=== PATIENT | female | born 1950 | race American Indian/Alaskan Native ===

== ENCOUNTER 2020-06-22 08:30 | Day surgery (SDC) | payer MEDICARE, OTHER ==
[~2020-06-22 08:30] MED LIST: ACETAMINOPHEN 500 MG TAB PO SCH; LACTATED RINGERS 1,000 ML IV SCH; MIDAZOLAM 2 MG/2 ML INJ IV NR; ceFAZolin/Water 2 GM/20 ML 2 GM/20 ML SYRINGE IV NR; fentaNYL 100 MCG/2 ML INJ IV PRN
[2020-06-22] MEDS ORDERED: BUPIVACAINE-EPINEPHRINE/PF 0.5%-1:200,000 (30 ML) VIAL INFILTRATI ONE (08:49)
[2020-06-22] MEDS ORDERED: dexAMETHasone 4 MG/ML VIAL ONE (08:49)
[2020-06-22] MEDS ORDERED: LIDOCAINE (1%) 10 MG/1 ML VIAL 20 ML MDV ONE ×2 (08:50→08:54)
[2020-06-22] MEDS ORDERED: fentaNYL 100 MCG/2 ML INJ IV PRN (10:01)
[2020-06-22] MEDS ORDERED: ONDANSETRON 4 MG/2 ML INJ IV PRN (10:01)
--- NOTE | 2020-06-22 10:01 | Anesthesia Consultation ---
Anesthesia Consult and Med Hx Date of service: 06/22/20 - Airway Anesthetic Teeth Evaluation: Good ROM Head & Neck: Adequate Mental/Hyoid Distance: Adequate Mallampati Class: Class III Intubation Access Assessment: Possibly Difficult - Pulmonary Exam CTA: Yes - Cardiac Exam Cardiac Exam: RRR - Pre-Operative Health Status ASA Pre-Surgery Classification: ASA3 Proposed Anesthetic Plan: General Nerve Block: PECS - Pulmonary Hx Smoking: No (remote hx sociaal smoking) Hx Respiratory Symptoms: No Hx Sleep Apnea: Yes (No CPAP) - Cardiovascular System Hx Hypertension: Yes (took clonidine this morning. BP elevated in preop possibly 2/2 anxiety) Hx Heart Attack/AMI: No Hx Percutaneous Transluminal Coronary Angioplasty (PTCA): No - Central Nervous System CVA: No - Endocrine Hx Renal Disease: No Hx Liver Disease: No Hx Insulin Dependent Diabetes: No Hx Non-Insulin Dependent Diabetes: No (A1c 6.5; no meds) Hx Thyroid Disease: No - Other Systems Hx Cancer: Yes (breast ca) Hx Obesity: Yes (BMI 45) - Additional Comments Anesthesia Medical History Comments: No hx anesthetic complications.
--- NOTE | 2020-06-22 10:01 | Anesthesia Day of Surgery ---
Anesthesia Day of Surgery - Day of Surgery Patient Examined: Yes Patient H&P Reviewed: Yes Patient is NPO: Yes
--- NOTE | 2020-06-22 10:58 | Progress Note ---
Regional Anesthesia Block - Regional Anesthesia Block Start Time: 10:47 Stop Time: 10:53 Performed By:: MARC AMBRIZ Procedure: [Right] Ultrasound Guided PEC Block Pt IDd, consent obtained, time out performed. Pt on monitor + O2 via NC, VS stable, sedation given per pre-op RN. Sterile prep. Landmarks identified with ultrasound. [2]cc skin wheel with 1% lidocaine. Needle advance in plane with ultrasound. [30]cc [0.5]% bupivacaine [w/ epi] + [4]mg decadron injected incrementally with negative aspiration. Pt tolerated procedure well, no immediate complications noted.
--- NOTE | 2020-06-22 10:59 | Mammography Report ---
MAMMOGRAPHIC GUIDED RIGHT BREAST NEEDLE LOCALIZATION, 06/22/2020 CLINICAL INFORMATION / INDICATION: RT BREAST CANCER. COMPARISON: 04/15/2020 PROCEDURE: Risks, benefits and indications to the procedure were discussed with the patient. The patient agreed to proceed with both verbal and written consent. A timeout procedure was performed with 2 patient live ntifiers. The breast was prepped with betadine in the usual sterile fashion. Approximately 5 cc of Lidocaine 1% was used for local anesthesia. Under direct digital mammographic guidance, a localization wire was p laced in satisfactory position with distal tip traversing the targeted lesion. Post-biopsy mammogram confirms satisfactory positioning of the localization wire. The wire was secured to the skin with a s terile dressing. The patient tolerated procedure without difficulty. No complications were encountered. IMPRESSION: 1. Satisfactory mammographic guided wire localization of the right breast. Signer Name: Dashawn Avitia Jr, MD Signed: 06/22/2020 10:54 AM Workstation Name: [id number]
[2020-06-22] MEDS ORDERED: SODIUM CHLORIDE P/F VIAL 10 ML 10 ML ONE (12:30)
[2020-06-22] MEDS ORDERED: METHYLENE BLUE 50 MG/10 ML AMP ONE (12:30)
[2020-06-22] MEDS ORDERED: propofoL 200 MG/20 ML VIAL IV ONE (12:36)
[2020-06-22] MEDS ORDERED: dexAMETHasone 20 MG/5 ML VIAL ONE ×2 (12:38→16:58)
[2020-06-22] MEDS ORDERED: ONDANSETRON 4 MG/2 ML INJ ONE ×2 (12:38→16:58)
[2020-06-22] MEDS ORDERED: KETOROLAC 30 MG/1 ML INJ ONE (12:38)
--- NOTE | 2020-06-22 12:58 | Short Stay Summary ---
Short Stay Documentation Date of service: 06/22/20 - History H&P: obtained from office - Allergies and Medications Current Medications: Allergies No Known Allergies Allergy (Unverified 06/15/20 15:58) Home Medications Medication Instructions Recorded Confirmed Last Taken Type Olmesartan/Amlodipin/Hcthiazid 1 each PO DAILY 06/15/20 06/15/20 Unknown History [Zcepuwf-Rgijld-Ezkw 40-10-12.5] cloNIDine [Catapres] 0.1 mg PO BID 06/15/20 06/15/20 Unknown History Active Medications Acetaminophen (Acetaminophen 500 Mg Tab) 1,000 mg PO PREOP TC Stop: 06/22/20 21:00 Fentanyl (Fentanyl 100 Mcg/2 Ml Inj) 100 mcg IV ONCE PRN PRN Reason: sedation for nerve block Stop: 06/22/20 21:00 Fentanyl (Fentanyl 100 Mcg/2 Ml Inj) 50 mcg IV Q5MIN PRN PRN Reason: Pain , Severe (7-10) Stop: 06/22/20 23:00 Cefazolin Sodium (Ancef/Sterile Water 2 Gm/20 Ml) 2 gm in 20 mls @ 80 mls/hr IV PREOP NR; Protocol Stop: 06/22/20 23:59 Lactated Ringer's (Lactated Ringers) 1,000 mls @ 100 mls/hr IV DIRECT TC Stop: 06/22/20 23:59 Midazolam HCl (Midazolam 2 Mg/2 Ml Inj) 2 mg IV PREOP NR Stop: 06/22/20 21:00 Ondansetron HCl (Ondansetron 4 Mg/2 Ml Inj) 4 mg IV ONCE PRN PRN Reason: Nausea And Vomiting Stop: 06/22/20 20:00 - Brief post op/procedure progress note Date of procedure: 06/22/20 Pre-op diagnosis: Right breast cancer Post-op diagnosis: same Procedure: Right partial mastectomy of lower outer quadrant with SLNB and right breast UOQ excisional biopsy Anesthesia: GETA Findings: Right breast clips present; SLNs Surgeon: ABEL GOODE Estimated blood loss: minimal Pathology: list (right partial mastectomy; right loc excisional biopsy; x2 slns) Specimen disposition: to lab Condition: stable - Disposition Condition at discharge: Good Disposition: DC- TO HOME OR SELFCARE Short Stay Discharge Plan Activity: other (no heavy lifting) Diet: regular Wound: keep clean and dry (may shower in 48 hours; no baths; wear breast binder) Follow up with: ABEL GOODE MD [Staff Physician] - 7 Days Prescriptions: oxyCODONE /ACETAMINOPHEN [Percocet 5/325] 1 tab PO Q6HR PRN #20 tablet PRN Reason: Pain
--- NOTE | 2020-06-22 13:05 | Operative Report ---
Operative Report Operative Report: Operative Report: June 22, 2019 Preoperative diagnosis: Right breast cancer of the lower outer quadrant and right breast atypia of upper outer quadrant Postoperative diagnosis: Same Procedure: Right partial mastectomy of lower outer quadrant with SLNB and right breast needle localization excisional biopsy of the upper outer quadrant Surgeon: Ivana Costa MD Seismic Engineer: Trisha Reese MD Anesthesia: General Findings: Right breast wire and clip present within radiograph specimen; right breast mass with clip present; x2 SLN Complications: None EBL: Minimal, less than 50 cc Disposition: PACU in good condition Indications for operative procedure: This is a 70 year old lady with newly diagnosed right breast cancer of the lower inner quadrant and right breast atypia of of the upper outer quadrant, Stage I/II cT1c/2N0M0 ER/DE positive (IDCA around 6:30 position 9 cm FN, right breast atypia of the upper outer quadrant). Patient wanted to proceed with breast conservation; she understood if margins were positive would recommend a mastectomy at surgery; Patient with right breast IDCA of lower inner quadrant and right breast atypia of upper outer quadrant. Radiology place wire at area of atypia and ultrasound guided partial mastectomy of bresat IDCA at 6:30 position. She understands the role of adjuvant radiation therapy and Oncotype DX will be obtained by medical oncology. She wished to proceed with the above procedure. Procedure in detail: The patient was taken to radiology for wire placement for localization known area of atypia of upper outer quadrant. Anesthesia placed right pectoral block. Patient was then taken to the operating room. Gen. anesthesia was administered. The right nipple was injected with radioisotope. Right breast and axilla were prepped and draped in the normal sterile operative fashion. The wire was identified. Timeout was performed. Gamma probe was inserted into the axilla. The area of hot spot was identified. A right axillary incision was made with a 15 blade knife with dissection taken down to the subcutaneous tissues. The axillary fascia was opened with the Bovie cautery. 2 SLNs were identified. All remaining counts were less than 10% of the highest count. Lymph nodes were sent to pathology for permanent processing. Hemostasis was obtained in the right axillary cavity. Axillary cavity was appropriately irrigated and suctioned. Hemostasis was noted. Axillary fascia was approximated and closed using interrupted 3-0 Vicryl and the skin brought together and closed using a running 4-0 Monocryl followed by skin affix. Attention was then taken towards the right breast known carcinoma at 6:30 position 9 cm FN. Ultrasound was used as well for marking of the area of incision. A breast incision was made with a 15 blade knife encompassing the skin given skin induration and thickness with concerns of tumor close to skin and dissection taken down to subcutaneous tissues. First began raising of the superior flap with dissection taken past the area of known malignancy and down to the pectoralis muscle, followed by raising of the inferior flap, medial flap and lateral flap with all flaps taken past the area of known malignancy and down to the pectoralis muscle. The breast area of concern was appropriately removed posteriorly from the pectoralis muscle with the aid of the Bovie cautery. Specimen was marked and then sent to pathology and radiology; radiograph specimen with mass and clip present. Breast cavity was irrigated and hemostasis was obtained. Then proceeded with complex closure of 7-8 cm defect. The posterior deep breast tissues were mobilized. The posterior deep breast tissues were approximated and closed using interrupted 3-0 Vicryl. The subcutaneous tissues were approximated and closed using interrupted 3-0 Vicryl followed by closing of the skin with a running 4-0 Monocryl and skin affix. Attention was then taken towards the right breast at known atypia of upper outer quadrant. Lateral breast incision around 9:00 position was made with a 15 blade knife and dissection taken down to subcutaneous tissues. First began raising of the medial flap with removal of the wire from the skin with dissection take down to the pectoralis muscle and past the wire, followed by raising of the inferior flap, superior flap and lateral flap with all flaps taken down to the pectoralis muscle and past the wire. The breast area of concern was appropriately removed posteriorly from the pectoralis muscle with the aid of the Bovie cautery. The wire was not encountered. Specimen was marked and then sent to pathology and radiology; radiograph specimen with wire and clip present. Breast cavity was irrigated and hemostasis was obtained. The posterior deep breast tissues were approximated and closed using interrupted 3-0 Vicryl. The subcutaneous tissues were approximated and closed using interrupted 3-0 Vicryl followed by closing of the skin with a running 4-0 Monocryl and skin affix. The patient tolerated surgery very well and she was awaken from anesthesia without any complication and transported to PACU in good condition.
[2020-06-22] MEDS ORDERED: HYDROmorphone 1 MG/1 ML INJ ONE ×2 (13:08→13:09)
[2020-06-22] MEDS ORDERED: SODIUM CHLORIDE 0.9% P/F 10 ML VIAL INFILTRATI ONE (13:38)
[2020-06-22] MEDS ORDERED: WATER FOR IRRIG STERILE 1,500 ML BOTTLE IR ONE ×2 (13:38→15:11)
[2020-06-22] MEDS ORDERED: METHYLENE BLUE 50 MG/10 ML AMP IRRIGATION ONE ×2 (13:38)
--- NOTE | 2020-06-22 15:40 | Mammography Report ---
RIGHT BREAST SPECIMEN RADIOGRAPH, 06/22/2020 INDICATION: Right breast target lesion: Right breast cancer. COMPARISON: Needle localization performed earlier today FINDINGS: The previously localized target lesion is present in its entirety in the submitted specimen. The localization wire is not present. IMPRESSION: 1. Radiographic evidence of satisfactory excision of the target lesion. Recommend margin correlation with the formal pathology report. Signer Name: Dashawn Avitia Jr, MD Signed: 06/22/2020 3:36 PM Workstation Name: [id number]
[2020-06-22] MEDS ORDERED: NEOMY 3.5 MG/BACIT 400 UNITS/POLY B 5000 UNITS OINT 15 GM TP ONE (16:14)
--- NOTE | 2020-06-22 16:53 | Mammography Report ---
BREAST SPECIMEN RADIOGRAPH HISTORY: Right lumpectomy FINDINGS/IMPRESSION: The submitted radiograph or radiographs demonstrate(s) the presence of a biopsy marker and distal asp ect of a localization wire within soft tissue, as expected. Signer Name: Fifi Shrestha MD Signed: 06/22/2020 4:48 PM Workstation Name: [id number]
[2020-06-22] MEDS ORDERED: NEOSTIGMINE 10MG/10 ML INJ MDV ONE (16:58)
[2020-06-22] MEDS ORDERED: GLYCOPYRROLATE 0.4 MG/2 ML INJ ONE (16:58)
[2020-06-22] MEDS ORDERED: PHENYLEPHRINE/NS 1,000 MCG/10 ML SYRINGE (OR USE) IV ONE (16:58)
[2020-06-22] MEDS ORDERED: ROCURONIUM 50 MG/5 ML INJ IV ONE (17:00)
[2020-06-22] MEDS ORDERED: ePHEDrine SULFATE 50 MG/1 ML INJ ONE (17:00)
[2020-06-22 18:33] VITALS: BP 149/80
--- NOTE | 2020-06-22 20:52 | Post Anesthesia Evaluation ---
- Post Anesthesia Evaluation Patient Participated: Yes Airway Patent: Yes Stable Respiratory Function: Yes Nausea/Vomiting: No Temp > 96.8F: Yes Pain Manageable: Yes Adequeate Hydration: Yes Anesthesia Complications: No
== END 2020-06-22 19:05 | disposition home or self-care (01) ==
LOC: OR 08:30
PROVIDERS: ATTEND Surgery
DX: C50.511 Malignant neoplasm of lower-outer quadrant of right female breast (principal); N64.89 Other specified disorders of breast; I89.8 Other specified noninfective disorders of lymphatic vessels and lymph nodes; I10 Essential (primary) hypertension; G47.33 Obstructive sleep apnea (adult) (pediatric); E66.9 Obesity, unspecified; M19.90 Unspecified osteoarthritis, unspecified site; E11.9 Type 2 diabetes mellitus without complications; Z86.19 Personal history of other infectious and parasitic diseases; Z98.51 Tubal ligation status; Z79.899 Other long term (current) drug therapy
CPT/HCPCS: 19125; 19281; 19301; 38525; 38792; 76098; 78800; 82962; 88307; 88333; A6250; A9541; J0690; J1100; J1170; J1885; J2250; J2370; J2405; J2704; J2710; J3010; J7120; Q9968; U0003; 64450

== ENCOUNTER 2021-01-19 13:59 | Outpatient (CLI) | payer MEDICARE ==
--- NOTE | 2021-01-19 14:59 | Mammography Report ---
DIGITAL DIAGNOSTIC MAMMOGRAM WITH CAD CONVENTIONAL, 01/19/2021 CLINICAL INFORMATION / INDICATION: Z85.3 PERSONAL HISTORY OF BREAST CA with lumpectomy and radiation therapy earlier this year TECHNIQUE: Digital right mammographic imaging was performed. This examination was interpreted with the benefit of Computer-aided Detection analysis. COMPARISON: Bilateral mammogram 01/14/2020, right mammogram postbiopsy 01/28/2020, right mammogram post biopsy 04/15/2020, needle localization right mammogram 06/22/2020 FINDINGS: Breast Density: The breasts are heterogeneously dense, which may obscure small masses. Interval surgical changes are seen with removal of prior biopsy sites. Diffuse increase in density an d skin thickening are likely related to radiation therapy. Benign-appearing calcifications are again seen. No suspicious abnormalities are noted. IMPRESSION: No mammographic evidence of malignancy. Follow up recommendation: Routine BI-RADS Category 2: Benign. A "normal" or negative report should not discourage follow up or biopsy of a clinically significant f inding. A written summary of these findings will be mailed to the patient. The patient will be entered into a mammography reporting system which will generate a reminder letter for the patient's next appointmen t at the appropriate interval. According to the [employer], yearly mammograms are recommended starting at age 40 and continuing as long as a woman is in good health. Breast MRI is recommended for women with an nadege roximately 20-25% or greater lifetime risk of breast cancer, including women with a strong family his tory of breast or ovarian cancer and women who have been treated for Hodgkin's disease. Signer Name: Juan Diego Flowers MD Signed: 01/19/2021 2:55 PM Workstation Name: [id number]
== END 2021-01-19 14:00 | disposition home or self-care (01) ==
LOC: SPVWC 13:59
PROVIDERS: ATTEND Surgery
DX: R92.8 Other abnormal and inconclusive findings on diagnostic imaging of breast (principal); Z85.3 Personal history of malignant neoplasm of breast